=== PATIENT | male | born 1980 | race Caucasian/White ===

== ENCOUNTER 2017-11-01 12:12 | Emergency (ER) | payer MEDICAID ==
[~2017-11-01] VITALS: Ht 177.8 cm; Wt 77.1 kg
[2017-11-01] MEDS ORDERED: ALBU0.63 IH (12:25)
[2017-11-01] MEDS ORDERED: ALBUTEROL SULFATE 2.5 MG/ 0.5 ML NEBU ONE (12:59)
[2017-11-01] MEDS ORDERED: IPRATROPIUM BROMIDE 0.5 MG/2.5 ML NEBU ONE (12:59)
[2017-11-01] MEDS ORDERED: ALBUTEROL SULFATE 2.5 MG/3 ML NEBU ONE (12:59)
[2017-11-01] MEDS: IPRATROPIUM BROMIDE 0.5 MG/2.5 ML NEBU NEB ONE (13:00)
[2017-11-01] MEDS: ALBUTEROL SULFATE 2.5 MG/3 ML NEBU NEB ONE (13:00)
[2017-11-01] MEDS: methylPREDNISolone SOD SUCC 125 MG/2 ML VIAL IV ONE (13:01)
--- NOTE | 2017-11-01 13:01 | NUR ---
PATIENT STATES HE HAS ASTHMA AND FEELS SOB. OXYGEN PLACED INSTRUCTED BY MD. PLACED ON CONTINUOUS MONITORING.
[2017-11-01] MEDS ORDERED: methylPREDNISolone SOD SUCC 125 MG/2 ML VIAL ONE (13:03)
--- NOTE | 2017-11-01 14:05 | NUR ---
PATIENT STATES HE FEELS BETTER.
--- NOTE | 2017-11-01 14:27 | NUR ---
DC, RX AND FOLLOW UP INSTRUCTIONS GIVEN AND EXPLAINED TO PATIENT WHO STATES HE UNDERSTANDS ALL INSTRUCTIONS. IV DC'D, CATHETER TIP INTACT, PRESSURE APPLIED, DRESSING APPLIED.
[2017-11-01 14:35] VITALS: BP 126/78
== END 2017-11-01 14:36 | disposition home or self-care (01) ==
LOC: ER 12:18
DX: J45.901 Unspecified asthma with (acute) exacerbation (principal); F17.210 Nicotine dependence, cigarettes, uncomplicated; F12.10 Cannabis abuse, uncomplicated
CPT/HCPCS: 71045; 94644; 96374; 99285; A4663; J2930; J3490; J3590

== ENCOUNTER 2018-12-30 13:36 | Emergency (ER) | payer BC, MEDICAID ==
[~2018-12-30] VITALS: Ht 177.8 cm; Wt 78.9 kg
[~2018-12-30 13:36] MED LIST: ALBU0.63 IH
[2018-12-30 14:31] VITALS: BP 106/72
--- NOTE | 2018-12-30 14:32 | NUR ---
pT WAS DISCHARGED HOME IN STABLE CONDITION.dISCHARGE INSTRUCTION GIVEN.pT VERBALIZED UNDERSTANDING.
== END 2018-12-30 14:32 | disposition home or self-care (01) ==
LOC: ER 13:40
DX: S62.024A Nondisplaced fracture of middle third of navicular [scaphoid] bone of right wrist, initial encounter for closed fracture (principal); J45.909 Unspecified asthma, uncomplicated; F17.210 Nicotine dependence, cigarettes, uncomplicated; Z79.899 Other long term (current) drug therapy; V19.9XXA Pedal cyclist (driver) (passenger) injured in unspecified traffic accident, initial encounter; Y93.89 Activity, other specified; Y92.89 Other specified places as the place of occurrence of the external cause; Y99.8 Other external cause status
CPT/HCPCS: 73110; A4663